=== PATIENT | female | born 1990 | race Caucasian/White ===

== ENCOUNTER 2021-02-10 19:24 | Inpatient (IN) | payer BC ==
[2021-02-10] MEDS ORDERED: Sodium Chloride 0.9% 20 ML SDV IV PRN (19:30)
[2021-02-10] MEDS ORDERED: Tranexamic Acid 1,000 MG in Sodium Chloride 0.9% 100 ML IV PRN (19:30)
[2021-02-10] MEDS ORDERED: Lidocaine 1% 50 ML MDV INJECT PRN (19:30)
[2021-02-10] MEDS ORDERED: Oxytocin/0.9 % Sodium Chloride 30 UNIT/500 ML BAG IV SCH ×2 (19:30)
[2021-02-10] MEDS ORDERED: Sodium Chloride 0.9% 2.5 ML Syringe FLUSH PRN (19:30)
[2021-02-10] MEDS ORDERED: Nalbuphine 10 MG/1 ML Vial IVPUSH PRN (19:30)
[2021-02-10] MEDS ORDERED: Sodium Chloride 0.9% 10 ML Syringe FLUSH PRN (19:30)
[2021-02-10] MEDS ORDERED: Butorphanol 1 MG/ML SDV IVPUSH PRN (19:30)
[2021-02-10] MEDS ORDERED: Ondansetron 4 MG/2 ML SDV IVPUSH PRN (19:30)
[2021-02-10] MEDS ORDERED: Carboprost Tromethamine 250 MCG/1 ML Amp IM PRN (19:30)
[2021-02-10] MEDS ORDERED: Terbutaline 1 MG/ML SDV SUBCUT PRN (19:30)
[2021-02-10] MEDS ORDERED: Water For Irrigation,Sterile 1,000 ML Container IRR PRN (19:30)
[2021-02-10] MEDS ORDERED: Methylergonovine 0.2 MG/1 ML Amp IM PRN (19:30)
[2021-02-10] MEDS ORDERED: Misoprostol 200 MCG Tab PO PRN (19:30)
[2021-02-10] MEDS ORDERED: Insulin Regular in 0.9 % NACL 100 ML IV SCH (19:40)
[2021-02-10] MEDS ORDERED: Misoprostol 25 MCG (1/4 of 100 MCG) Tab VAG PRN (20:30)
[2021-02-10] MEDS: Lactated Ringers 1,000 ML IV SCH (20:51)
[2021-02-11] MEDS: Misoprostol 25 MCG (1/4 of 100 MCG) Tab VAG PRN ×4 (00:42→12:58)
[2021-02-11] MEDS: Lactated Ringers 1,000 ML IV SCH ×3 (09:10→19:06)
[2021-02-11] MEDS ORDERED: Acetaminophen 500 MG Tab PO ONE (11:35)
--- NOTE | 2021-02-11 11:59 | PCM.PREANE ---
Preanesthetic Assessment - Procedure Proposed Procedure: Labor Epidural, Spinal, GETA - Anesthesia/Transfusion/Family Hx Anesthesia History: Prior Anesthesia Reaction (Emergency Delirium) Other Type of Anesthesia Reaction Comment: panic attack coming out of anesthesia Family History of Anesthesia Reaction: Yes (Father: Awareness) Transfusion History: No Prior Transfusion(s) - Review of Systems General: No Symptoms Pulmonary: Other (Athma with minmal inhailer use) Cardiovascular: No Symptoms Gastrointestinal: No Symptoms, Other (GERD. Gestational DM) Neurological: No Symptoms Other: Reports: None (81mg ASA stopped 02/06/21) - Physical Assessment NPO Status Date: 02/11/21 NPO Status Time: 12:00 Height: 1.65 m Weight: 117.934 kg ASA Class: 2 Mental Status: Alert & Oriented x3 Airway Class: Mallampati = 2 Thyro-Mental Finger Breadths: 3 Mouth Opening Finger Breadths: 3 ROM/Head Extension: Full Lungs: Clear to Auscultation, Normal Respiratory Effort Cardiovascular: Regular Rate, Regular Rhythm - Lab Values: Laboratory Last Values WBC 12.81 K/uL (4.0-11.0) H 02/10/21 20:10 RBC 4.05 M/uL (4.30-5.90) L 02/10/21 20:10 Hgb 10.5 g/dL (12.0-16.0) L 02/10/21 20:10 Hct 32.4 % (36.0-46.0) L 02/10/21 20:10 MCV 80.0 fL (80.0-98.0) 02/10/21 20:10 MCH 25.9 pg (27.0-32.0) L 02/10/21 20:10 MCHC 32.4 g/dL (31.0-37.0) 02/10/21 20:10 RDW Std Deviation 43.8 fl (28.0-62.0) 02/10/21 20:10 RDW Coeff of Gaviota 15 % (11.0-15.0) 02/10/21 20:10 Plt Count 216 K/uL (150-400) 02/10/21 20:10 MPV 11.20 fL (7.40-12.00) 02/10/21 20:10 Nucleated RBC % 0.0 /100WBC 02/10/21 20:10 Nucleated RBCs # 0 K/uL 02/10/21 20:10 POC Glucose 93 mg/dL (70-99) 02/11/21 10:57 Blood Type AB NEGATIVE 02/10/21 20:10 Antibody Screen NEGATIVE 02/10/21 20:10 - Allergies Allergies/Adverse Reactions: Allergies Allergy/AdvReac Type Severity Reaction Status Date / Time No Known Allergies Allergy Verified 02/10/21 20:30 - Blood Blood Available: Yes Product(s) Available: PRBC (Type and Screen) - Anesthesia Plan Pre-Op Medication Ordered: None - Acknowledgements Anesthesia Type Planned: General Anesthesia, Spinal, Epidural Pt an Appropriate Candidate for the Planned Anesthesia: Yes Alternatives and Risks of Anesthesia Discussed w Pt/Guardian: Yes Pt/Guardian Understands and Agrees with Anesthesia Plan: Yes PreAnesthesia Questionnaire HEENT History: Reports: Impaired Vision, Other (See Below) Other HEENT History: 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 sees skin care therapist biweekly for back and neck pain Neurological History: Reports: Concussion, Headaches, Chronic, Migraines, Other (See Below) Other Neuro History: most recent was in winter of 2016. Migraines during this Psychiatric History: Reports: Anxiety, Depression, Panic Attack Endocrine/Metabolic History: Reports: Diabetes, Gestational, Obesity/BMI 30+ Hematologic History: Reports: Other (See Below) Other Hematologic History: Vitamin D deficient - Infectious Disease History Infectious Disease History: Reports: Chicken Pox, Mononucleosis - Past Surgical History HEENT Surgical History: Reports: Adenoidectomy, Tonsillectomy, Other (See Below) Other HEENT Surgeries/Procedures: Wisedom teeth removed in 2008. Cardiovascular Surgical History: Reports: None Respiratory Surgical History: Reports: None GI Surgical History: Reports: None Endocrine Surgical History: Reports: None Neurological Surgical History: Reports: None Musculoskeletal Surgical History: Reports: None Dermatological Surgical History: Reports: None - SUBSTANCE USE Tobacco Use Status *Q: Former Tobacco User Tobacco Use Within Last Twelve Months: Smokeless Tobacco Second Hand Smoke Exposure: No Recreational Drug Use History: No - CURRENT (IN HOUSE) MEDS Current Meds: Current Medications Butorphanol Tartrate (Butorphanol 1 Mg/Ml Sdv) 1 mg IVPUSH Q1H PRN PRN Reason: Pain (severe 7-10) Carboprost Tromethamine (Carboprost Tromethamine 250 Mcg/1 Ml Amp) 250 mcg IM ASDIRECTED PRN PRN Reason: Post Hemorrhage Oxytocin/Sodium Chloride (Oxytocin 30 Unit In Ns 0.9% 500 Ml Premix) 30 unit in 500 mls @ 2 mls/hr IV TITRATE TAYLOR; Protocol Lactated Ringer's (Ringers, Lactated) 1,000 mls @ 150 mls/hr IV ASDIRECTED TAYLOR Last Admin: 02/11/21 09:10 Dose: 150 mls/hr Documented by: Oxytocin/Sodium Chloride (Oxytocin 30 Unit In Ns 0.9% 500 Ml Premix) 30 unit in 500 mls @ 500 mls/hr IV TITRATE TAYLOR Tranexamic Acid 1,000 mg/ (Sodium Chloride) 110 mls @ 660 mls/hr IV ONETIME PRN PRN Reason: Bleeding Dextrose/Lactated Ringer's (Dextrose 5%-Lactated Ringers) 1,000 mls @ 100 mls/hr IV ASDIRECTED TAYLOR Insulin Regular in 0.9 % NACL (Myxredlin In Ns 100 Unit/100 Ml) 100 mls @ 0.5 mls/hr IV TITRATE TAYLOR; Protocol Lidocaine HCl (Lidocaine 1% 50 Ml Mdv) 50 ml INJECT ONETIME PRN PRN Reason: Laceration repair Methylergonovine Maleate (Methylergonovine 0.2 Mg/1 Ml Amp) 0.2 mg IM ASDIRECTED PRN PRN Reason: Post Hemorrhage Misoprostol (Misoprostol 25 Mcg (1/4 Of 100 Mcg) Tab) 25 mcg VAG ONETIME PRN PRN Reason: Cervical Ripening Last Admin: 02/10/21 20:42 Dose: 25 mcg Documented by: Misoprostol (Misoprostol 25 Mcg (1/4 Of 100 Mcg) Tab) 25 mcg VAG Q4H PRN PRN Reason: Cervical Ripening Last Admin: 02/11/21 09:11 Dose: 25 mcg Documented by: Misoprostol (Misoprostol 200 Mcg Tab) 200 mcg PO ONETIME PRN PRN Reason: Post Hemorrhage Nalbuphine HCl (Nalbuphine 10 Mg/1 Ml Vial) 10 mg IVPUSH Q1H PRN PRN Reason: Pain (severe 7-10) Ondansetron HCl (Ondansetron 4 Mg/2 Ml Sdv) 4 mg IVPUSH Q6H PRN PRN Reason: Nausea/Vomiting Sodium Chloride (Sodium Chloride 0.9% 10 Ml Syringe) 10 ml FLUSH ASDIRECTED PRN PRN Reason: Keep Vein Open Sodium Chloride (Sodium Chloride 0.9% 2.5 Ml Syringe) 2.5 ml FLUSH ASDIRECTED PRN PRN Reason: Keep Vein Open Sodium Chloride (Sodium Chloride 0.9% 20 Ml Sdv) 10 ml IV ASDIRECTED PRN PRN Reason: IV Use Sterile Water (Water For Irrigation,Sterile 1,000 Ml Container) 1,000 ml IRR ASDIRECTED PRN PRN Reason: delivery Terbutaline Sulfate (Terbutaline 1 Mg/Ml Sdv) 0.25 mg SUBCUT ASDIRECTED PRN PRN Reason: Tacysystole Discontinued Medications Acetaminophen (Acetaminophen 500 Mg Tab) 1,000 mg PO ONETIME ONE Stop: 02/11/21 11:36 Last Admin: 02/11/21 11:46 Dose: 1,000 mg Documented by:
[2021-02-11] MEDS: Dextrose 5%-Lactated Ringers 1,000 ML IV SCH (17:10)
[2021-02-11] MEDS ORDERED: Ropivacaine HCl/PF 200 ML ONE (19:34)
[2021-02-11] MEDS ORDERED: ePHEDrine 50 MG/ML SDV IVPUSH PRN (19:58)
[2021-02-11] MEDS ORDERED: Ropivacaine/PF 400 MG/200 ML PCA EPIDUR SCH (20:00)
--- NOTE | 2021-02-11 20:03 | PCM.POSTAN ---
POST ANESTHESIA ASSESSMENT - MENTAL STATUS Mental Status: Alert, Oriented - RESPIRATORY Respiratory Status: Respiratory Rate WNL, Airway Patent, O2 Saturation Stable - CARDIOVASCULAR CV Status: Pulse Rate WNL, Blood Pressure Stable - GASTROINTESTINAL GI Status: No Symptoms - POST OP HYDRATION Hydration Status: Adequate & Stable
--- NOTE | 2021-02-11 20:03 | PCM.SN.2 ---
- Pre-Procedure Checklist Attending Provider Aware: Yes Chart Reviewed: Yes Consent Signed: Yes Labs Reviewed: Yes VS/FHR Reviewed: Yes Patient Identification Confirmation Method: Reports: Chart Visual, Verbal Patient Pt an Appropriate Candidate for the Planned Anesthesia: Yes Alternatives and Risks of Anesthesia Discussed w Pt/Guardian: Yes - Procedure Procedure Start Date: 02/11/21 Procedure Start Time: 19:[address]: Reports: Blood Pressure, Heart Rate, SPO2 Functional IV: Yes Bolus Infused (fluid type and amount): 700 ML LR Bolus infused at time of start. Safety Measures: Reports: Patient Identified, Procedure Verified, Site Verified, Procedure Time Out Patient Position: Reports: Sitting Prep: Reports: Betadine x3 Local Anesthetic: Reports: Intradermal Wheal w Lidocaine 1% (3 ml) Regional Placement Level: Reports: L3-4 Needle: Reports: 17 g Touhy Approach: Reports: Midline Technique: Reports: TITA Glass Syringe TITA Needle Depth (cm): 7 cm Parasthesia: Reports: None Fluid Obtained: Reports: None Catheter Depth at Skin (cm): 17 cm Test Dose Time: 19:30 Test Dose Medication: Reports: Lidocaine 1.5% w Epinephrine 1:200,000 Test Dose Response: Reports: Negative Loading Dose Time: 19:38 (6 ML) Loading Dose Medication: Ropivicaine 0.2% Loading Dose Patient Position: Supine Continuous Infusion Start Time: 19:40 Continuous Infusion Medication: Ropivicaine 0.2% Continuous Infusion Rate: 16 ml / hr Continuous Infusion PCS Bolus Option: 6 Continuous Infusion Lockout Dose (cc/hr): 15 ( Min Lockout ) Patient Position Post Placement: Reports: Supline/DAMIEN Post-procedure Pain Level: 3 Level Achieved: T4 VS and FHR Monitored in Unit Post Placement: Yes Procedure End Date: 02/11/21 Procedure End Time: 20:20 Procedure Comment: Sterile technique used throughout.
[2021-02-12] MEDS: Lactated Ringers 1,000 ML IV SCH (02:42)
[2021-02-12] MEDS: Dextrose 5%-Lactated Ringers 1,000 ML IV SCH (03:10)
[2021-02-12] MEDS ORDERED: Ropivacaine HCl/PF 200 ML ONE (05:43)
[2021-02-12] MEDS ORDERED: Ropivacaine 0.2% PF 2 MG/ML 20 ML SDV ONE (06:53)
[2021-02-12] MEDS ORDERED: fentaNYL 100 MCG/2 ML SDV ONE ×2 (06:54→09:10)
[2021-02-12] MEDS ORDERED: ePHEDrine 50 MG/ML SDV ONE (08:14)
[2021-02-12] MEDS ORDERED: Oxytocin 10 Units/1 ML SDV ONE ×2 (08:14→08:37)
[2021-02-12] MEDS ORDERED: Glycopyrrolate 0.2 MG/ML SDV ONE (08:14)
[2021-02-12] MEDS ORDERED: ceFAZolin 1 GM Vial ONE (08:30)
[2021-02-12] MEDS ORDERED: Water For Injection, Sterile 20 ML ONE (08:30)
[2021-02-12] MEDS ORDERED: Morphine PF 10 MG/10 ML SDV ONE (08:37)
[2021-02-12] MEDS ORDERED: Acetaminophen/oxyCODONE 325-5 MG Tab PO PRN (09:01)
[2021-02-12] MEDS ORDERED: Bisacodyl 10 MG Supp RECTAL PRN (09:01)
[2021-02-12] MEDS ORDERED: Misoprostol 200 MCG Tab RECTAL PRN (09:01)
[2021-02-12] MEDS ORDERED: Tranexamic Acid 1,000 MG in Sodium Chloride 0.9% 100 ML IV PRN (09:01)
[2021-02-12] MEDS ORDERED: Simethicone 80 MG Tab.Chew PO PRN (09:01)
[2021-02-12] MEDS ORDERED: Methylergonovine 0.2 MG/1 ML Amp IM PRN (09:01)
[2021-02-12] MEDS ORDERED: Oxytocin 10 Units/1 ML SDV IM PRN (09:01)
[2021-02-12] MEDS ORDERED: Ondansetron 4 MG/2 ML SDV IVPUSH PRN (09:01)
[2021-02-12] MEDS ORDERED: Lanolin 100% Cream 7 GM Tube TOP PRN (09:01)
[2021-02-12] MEDS ORDERED: Oxytocin/Lactated Ringers 30 UNIT/500 ML BAG IV SCH (09:15)
[2021-02-12] MEDS ORDERED: Lactated Ringers 1,000 ML IV SCH (09:15)
--- NOTE | 2021-02-12 09:23 | PCM.POSTAN ---
POST ANESTHESIA ASSESSMENT - MENTAL STATUS Mental Status: Alert (Post Assessment.), Oriented - RESPIRATORY Respiratory Status: Respiratory Rate WNL, Airway Patent, O2 Saturation Stable - CARDIOVASCULAR CV Status: Pulse Rate WNL, Blood Pressure Stable - GASTROINTESTINAL GI Status: No Symptoms - POST OP HYDRATION Hydration Status: Adequate & Stable
--- NOTE | 2021-02-12 09:24 | PCM48HPAN ---
Post Anesthesia Note - EVALUATION WITHIN 48HRS OF ANESTHETIC Vital Signs in Normal Range: Yes Patient Participated in Evaluation: Yes Respiratory Function Stable: Yes Airway Patent: Yes Cardiovascular Function Stable: Yes Hydration Status Stable: Yes Pain Control Satisfactory: Yes Nausea and Vomiting Control Satisfactory: Yes Mental Status Recovered: Yes - COMMENTS/OBSERVATIONS Free Text/Narrative:: Epidural catheter removed in OR with tip intact.
[2021-02-12] MEDS: Ketorolac 30 MG/ML SDV IVPUSH SCH ×3 (10:50→22:19)
[2021-02-12] MEDS: diphenhydrAMINE 50 MG/ML SDV IVPUSH PRN ×2 (12:28→20:21)
[2021-02-12] MEDS ORDERED: Famotidine 20 MG/2 ML SDV IVPUSH ONE (14:08)
[2021-02-12] MEDS: Docusate Sodium 100 MG Cap PO SCH (22:18)
--- NOTE | 2021-02-12 23:27 | OR ---
SURGEON: Darnell Perez MD DATE OF PROCEDURE: 02/10/2021 INDICATION FOR PROCEDURE: This is a 30-year-old G2, P 0-0-1-0 at 39 weeks and 6 days, admitted for induction of labor for GDMA2. The patient's was complicated by history of polycystic ovarian syndrome and morbid obesity. She had elevated glucose tolerance test with a diagnosis of gestational diabetes, which was well controlled with long-acting insulin. The patient had serial growth ultrasounds, and the estimated weight was 4200 g. She is GBS negative. The patient's cervix was initially closed. She received 4 doses of Cytotec without significant cervical change. A Cook balloon was placed for mechanical dilation, and Pitocin was started. After the Cook balloon was placed for about 10 hours, the balloon was expelled and she progressed to 6, 90, and 0 station. She also had spontaneous rupture of membranes with clear fluid. She began to have stronger contractions and received an epidural. The heart rate was category I. In the next 3 hours, she progressed to fully dilated and +2 station. The patient then began pushing with contractions. However, she pushed for 3 hours and did not make descent past +3 station. Exam noted the head to be occiput posterior position. The patient was also getting exhausted from pushing. We discussed the risks and benefits of vacuum- assisted vaginal delivery versus primary due to arrest of descent, the patient desired vacuum-assisted vaginal delivery. PREOPERATIVE DIAGNOSES: 1. Whitlock intrauterine at 39 weeks and 6 days. 2. Insulin-controlled gestational diabetes. 3. Second-stage arrest. 4. Occiput posterior presentation. POSTOPERATIVE DIAGNOSES: 1. Whitlock intrauterine at 39 weeks and 6 days. 2. Insulin-controlled gestational diabetes. 3. Second-stage arrest. 4. Occiput posterior presentation. PROCEDURE PERFORMED: 1. Unsuccessful vacuum extraction. 2. Primary low-transverse section. CARGO SERVICE AGENT: Shala Sarabia MD ANESTHESIOLOGIST: Dr. Cisco Winn and Cj Corona CRNA. ANESTHESIA: Epidural. FINDINGS: Viable female . scores of 8 and 10, weight of 3690 g. The head was in the occiput posterior presentation. ESTIMATED BLOOD LOSS: 600 mL. URINE OUTPUT: 60 mL. IV FLUIDS: 1100 mL. DESCRIPTION OF THE PROCEDURE: The risks and benefits of the vacuum-assisted delivery was discussed with the patient, including maternal lacerations and hematoma; and retinal hemorrhage, cephalhematoma, and subdural or subgaleal hematoma were discussed with the patient. She was agreeable to proceed. The patient's bladder was emptied with a straight catheter. She was placed in dorsal lithotomy position. The head was found to be occiput posterior position. A Kiwi vacuum was applied over the flexion point and suction increased to the appropriate level. With the next contraction, I advised the patient to push. The vacuum was applied for 3 contractions with two pop offs, and there was minimal descent. Discussed with the patient and that she had made minimal descent and her chances of delivering vaginally is low considering the position and size. I advised her to proceed with primary low-transverse section. We discussed the risks of including bleeding; infection; DVTs; injury to surrounding organs including bladder, bowel, and ureter. The patient was agreeable. Consent was signed and questions answered. Anesthesia, OR, and pediatric teams were informed and available. The patient was brought to the operating room. She received 3 g Ancef IV and SCDs. Epidural anesthesia was already in place and topped off by Anesthesia team. A Lazar catheter was placed. The abdomen was prepped with chlorhexidine in a sterile fashion, and the vagina prepped with Betadine. The patient was draped and then tested for analgesia. The epidural was adequate. The Pfannenstiel incision was made with a scalpel and dissected down to the fascia. Multiple sites of bleeding were noted and cauterized. The fascia was cleared of subcutaneous tissue. The fascia was incised in the midline and extended laterally with curved Roberson scissors. Sweetie clamps were placed on the superior fascial edge. The rectus muscles were by blunt dissection and using Roberson scissors. The same process was repeated for the inferior fascial edge. The peritoneum was identified, and the rectus muscles were in the midline bluntly. The Binu-O retractor was placed in the peritoneal cavity. The bladder was noted to be very edematous. The bladder flap was made by gently dissecting the vesicouterine peritoneum with Metzenbaum scissors, and bladder pushed below the lower uterus segment. The uterus was incised using a scalpel and entered and extended bluntly. Clear amniotic fluid was noted. The infant's head was brought to the hysterotomy atraumatically by elevating the head up from the pelvis. The shoulder and body were then delivered with fundal pressure. The umbilical cord was clamped and cut after about 60 seconds and no longer pulsating. The baby was pink, crying immediately, and moving all extremities. The baby was handed over to the nursery staff. The cord gases were obtained. The placenta was delivered with gentle traction on the umbilical cord. The uterine cavity was cleaned with a sponge. The Allis clamps were used to grasp the angles and lower edges of the incision. The uterine incision was closed in 2 layers, the first layer with running locking suture using 0 Monocryl, and the second layer with 0 Vicryl in a vertical imbricated fashion. The incision was examined, and there were a few areas near the bladder flap that were bleeding slightly. [id number] sutures were placed for hemostasis. The bladder was carefully examined and there was no signs of injury. The paracolic gutters were cleaned of any clots. The incision was irrigated. Hemostasis was confirmed. The peritoneum was grasped by Adilene clamps and closed with 2-0 Vicryl in a running fashion. The rectus muscle was reapproximated in the midline with a mattress stitch using 2-0 Vicryl. The fascia was closed using two 0 Vicryl sutures in a running fashion. The subcutaneous tissue was irrigated and bleeding areas cauterized. The subcutaneous layer was brought together with 2-0 plain suture in a running fashion. The skin was closed in a subcuticular fashion using 3-0 Monocryl on a Ben needle. A JUAN dressing was placed over the incision. The patient tolerated the procedure well and was transferred to the recovery room in stable condition. PANCHO ORELLANA /[id number] TING
[2021-02-13] MEDS: Ketorolac 30 MG/ML SDV IVPUSH SCH ×2 (05:38→11:35)
--- NOTE | 2021-02-13 08:01 | PCM.PNPP ---
- General Info Date of Service: 02/13/21 Subjective Update: Patient slept overnight. Tinajero has been removed, has not attempted to void yet. Minimal bleeding. Pain well controlled while sleeping. Functional Status: Reports: Pain Controlled, Tolerating Diet - Review of Systems General: Reports: No Symptoms HEENT: Reports: No Symptoms Pulmonary: Reports: No Symptoms Cardiovascular: Reports: No Symptoms Gastrointestinal: Reports: No Symptoms Genitourinary: Reports: No Symptoms Musculoskeletal: Reports: No Symptoms Skin: Reports: No Symptoms Neurological: Reports: No Symptoms Psychiatric: Reports: No Symptoms - Patient Data Vital Signs - Most Recent: Last Vital Signs Temp 36.8 C 02/12/21 16:30 Pulse 82 02/12/21 16:30 Resp 18 02/12/21 16:30 BP 122/67 02/12/21 16:30 Pulse Ox 99 02/12/21 16:30 Weight - Most Recent: 117.934 kg I&O - Last 24 Hours: Intake & Output 02/12/21 02/13/21 02/13/21 22:59 06:59 14:59 Output Total 750 Balance -750 Lab Results - Last 24 Hours: Laboratory Results - last 24 hr 02/12/21 02/12/21 02/13/21 Range/Units 08:09 08:09 05:35 Hgb 7.7 L (12.0-16.0) g/dL Hct 24.7 L (36.0-46.0) % Cord ABG pH QNS Cord ABG Base Excess QNS Cord VBG pH 7.396 (7.25-7.45) Cord VBG Base Excess -6 (-10--2) POC Glucose (70-99) mg/dL Rhogam Indicated NO, MOM+BABY RH NEG 02/13/21 Range/Units 05:53 Hgb (12.0-16.0) g/dL Hct (36.0-46.0) % Cord ABG pH Cord ABG Base Excess Cord VBG pH (7.25-7.45) Cord VBG Base Excess (-10--2) POC Glucose 76 (70-99) mg/dL Rhogam Indicated Med Orders - Current: Current Medications Bisacodyl (Bisacodyl 10 Mg Supp) 10 mg RECTAL ONETIME PRN PRN Reason: Constipation Butorphanol Tartrate (Butorphanol 1 Mg/Ml Sdv) 1 mg IVPUSH Q1H PRN PRN Reason: Pain (severe 7-10) Last Admin: 02/11/21 14:08 Dose: 1 mg Documented by: Carboprost Tromethamine (Carboprost Tromethamine 250 Mcg/1 Ml Amp) 250 mcg IM ASDIRECTED PRN PRN Reason: Post Hemorrhage Diphenhydramine HCl (Diphenhydramine 50 Mg/Ml Sdv) 25 mg IVPUSH Q6H PRN PRN Reason: Itching or Nausea Last Admin: 02/12/21 20:21 Dose: 25 mg Documented by: Docusate Sodium (Docusate Sodium 100 Mg Cap) 100 mg PO BID TAYLOR Last Admin: 02/12/21 22:18 Dose: 100 mg Documented by: Emollient Ointment (Lanolin 100% Cream 7 Gm Tube) 0 gm TOP ASDIRECTED PRN PRN Reason: Sore Nipples Last Admin: 02/12/21 12:35 Dose: 1 tube Documented by: Ephedrine Sulfate (Ephedrine 50 Mg/Ml Sdv) 10 mg IVPUSH Q1M PRN PRN Reason: Hypotension Oxytocin/Sodium Chloride (Oxytocin 30 Unit In Ns 0.9% 500 Ml Premix) 30 unit in 500 mls @ 2 mls/hr IV TITRATE TAYLOR; Protocol Last Titration: 02/12/21 03:26 Dose: 12 munits/min, 12 mls/hr Documented by: Lactated Ringer's (Ringers, Lactated) 1,000 mls @ 150 mls/hr IV ASDIRECTED [facility] Last Admin: 02/12/21 02:42 Dose: 150 mls/hr Documented by: Oxytocin/Sodium Chloride (Oxytocin 30 Unit In Ns 0.9% 500 Ml Premix) 30 unit in 500 mls @ 500 mls/hr IV TITRATE TAYLOR Tranexamic Acid 1,000 mg/ (Sodium Chloride) 110 mls @ 660 mls/hr IV ONETIME PRN PRN Reason: Bleeding Dextrose/Lactated Ringer's (Dextrose 5%-Lactated Ringers) 1,000 mls @ 100 mls/hr IV ASDIRECTED TAYLOR Last Admin: 02/12/21 03:10 Dose: 100 mls/hr Documented by: Insulin Regular in 0.9 % NACL (Myxredlin In Ns 100 Unit/100 Ml) 100 mls @ 0.5 mls/hr IV TITRATE TAYLOR; Protocol Lactated Ringer's (Ringers, Lactated) 1,000 mls @ 125 mls/hr IV ASDIRECTED TAYLOR Oxytocin/Lactated Ringer's (Pitocin In Lr 30 Units/500 Ml) 30 unit in 500 mls @ 999 mls/hr IV TITRATE TAYLOR Tranexamic Acid 1,000 mg/ (Sodium Chloride) 110 mls @ 660 mls/hr IV ONETIME PRN PRN Reason: Bleeding Ibuprofen (Ibuprofen 800 Mg Tab) 800 mg PO Q8H PRN PRN Reason: Cramping Ketorolac Tromethamine (Ketorolac 30 Mg/Ml Sdv) 30 mg IVPUSH Q6H TAYLOR Stop: 02/13/21 09:16 Last Admin: 02/13/21 05:38 Dose: 30 mg Documented by: Lidocaine HCl (Lidocaine 1% 50 Ml Mdv) 50 ml INJECT ONETIME PRN PRN Reason: Laceration repair Methylergonovine Maleate (Methylergonovine 0.2 Mg/1 Ml Amp) 0.2 mg IM ASDIRECTED PRN PRN Reason: Post Hemorrhage Methylergonovine Maleate (Methylergonovine 0.2 Mg/1 Ml Amp) 0.2 mg IM ONETIME PRN PRN Reason: Excessive Vaginal Bleeding Miscellaneous Medication (Phenylephrine Hcl In 0.9% Nacl 1 Mg/10 Ml Syringe) 0.1 mg IVPUSH Q1M PRN PRN Reason: Hypotension Misoprostol (Misoprostol 25 Mcg (1/4 Of 100 Mcg) Tab) 25 mcg VAG ONETIME PRN PRN Reason: Cervical Ripening Last Admin: 02/10/21 20:42 Dose: 25 mcg Documented by: Misoprostol (Misoprostol 25 Mcg (1/4 Of 100 Mcg) Tab) 25 mcg VAG Q4H PRN PRN Reason: Cervical Ripening Last Admin: 02/11/21 12:58 Dose: 25 mcg Documented by: Misoprostol (Misoprostol 200 Mcg Tab) 200 mcg PO ONETIME PRN PRN Reason: Post Hemorrhage Misoprostol (Misoprostol 200 Mcg Tab) 1,000 mcg RECTAL ONETIME PRN PRN Reason: excessive bleeding Nalbuphine HCl (Nalbuphine 10 Mg/1 Ml Vial) 10 mg IVPUSH Q1H PRN PRN Reason: Pain (severe 7-10) Last Admin: 02/11/21 12:57 Dose: 10 mg Documented by: Ondansetron HCl (Ondansetron 4 Mg/2 Ml Sdv) 4 mg IVPUSH Q6H PRN PRN Reason: Nausea/Vomiting Ondansetron HCl (Ondansetron 4 Mg/2 Ml Sdv) 4 mg IVPUSH Q4H PRN PRN Reason: Nausea/Vomiting Oxycodone/Acetaminophen (Acetaminophen/Oxycodone 325-5 Mg Tab) 1 tab PO Q4H PRN PRN Reason: Pain (severe 7-10) Oxycodone/Acetaminophen (Acetaminophen/Oxycodone 325-5 Mg Tab) 2 tab PO Q4H PRN PRN Reason: Pain (severe 7-10) Oxytocin (Oxytocin 10 Units/1 Ml Sdv) 10 unit IM ASDIRECTED PRN PRN Reason: Excessive Vaginal Bleeding Ropivacaine (Ropivacaine/Pf 400 Mg/200 Ml Sewer And Inspector) 400 mg EPIDUR ASDIRECTED TAYLOR Simethicone (Simethicone 80 Mg Tab.Chew) 80 mg PO Q4H PRN PRN Reason: Gas Sodium Chloride (Sodium Chloride 0.9% 10 Ml Syringe) 10 ml FLUSH ASDIRECTED PRN PRN Reason: Keep Vein Open Sodium Chloride (Sodium Chloride 0.9% 2.5 Ml Syringe) 2.5 ml FLUSH ASDIRECTED PRN PRN Reason: Keep Vein Open Sodium Chloride (Sodium Chloride 0.9% 20 Ml Sdv) 10 ml IV ASDIRECTED PRN PRN Reason: IV Use Sterile Water (Water For Irrigation,Sterile 1,000 Ml Container) 1,000 ml IRR ASDIRECTED PRN PRN Reason: delivery Terbutaline Sulfate (Terbutaline 1 Mg/Ml Sdv) 0.25 mg SUBCUT ASDIRECTED PRN PRN Reason: Tacysystole Discontinued Medications Acetaminophen (Acetaminophen 500 Mg Tab) 1,000 mg PO ONETIME ONE Stop: 02/11/21 11:36 Last Admin: 02/11/21 11:46 Dose: 1,000 mg Documented by: Cefazolin Sodium (Cefazolin 1 Gm Vial) Confirm Administered Dose 1 gm .ROUTE .STK-MED ONE Stop: 02/12/21 08:31 Ephedrine Sulfate (Ephedrine 50 Mg/Ml Sdv) Confirm Administered Dose 50 mg .ROUTE .STK-MED ONE Stop: 02/12/21 08:15 Famotidine (Famotidine 20 Mg/2 Ml Sdv) 20 mg IVPUSH ONETIME ONE Stop: 02/12/21 14:09 Last Admin: 02/12/21 14:35 Dose: 20 mg Documented by: Fentanyl (Fentanyl 100 Mcg/2 Ml Sdv) Confirm Administered Dose 100 mcg .ROUTE .STK-MED ONE Stop: 02/12/21 06:55 Fentanyl (Fentanyl 100 Mcg/2 Ml Sdv) Confirm Administered Dose 100 mcg .ROUTE .STK-MED ONE Stop: 02/12/21 09:11 Glycopyrrolate (Glycopyrrolate 0.2 Mg/Ml Sdv) Confirm Administered Dose 0.4 mg .ROUTE .STK-MED ONE Stop: 02/12/21 08:15 Ropivacaine (Naropin 0.2%) Confirm Administered Dose 200 mls @ as directed .ROUT E .STK-MED ONE Stop: 02/11/21 19:35 Ropivacaine (Naropin 0.2%) Confirm Administered Dose 200 mls @ as directed .ROUTE .STK-MED ONE Stop: 02/12/21 05:44 Last Admin: 02/12/21 05:55 Dose: 16 mls/hr Documented by: Cefazolin Sodium/Dextrose (Ancef) Confirm Administered Dose 50 mls @ as directed .ROUTE .STK-MED ONE Stop: 02/12/21 08:15 Sterile Water (Sterile Water For Injection) Confirm Administered Dose 20 mls @ as directed .ROUTE .STK-MED ONE Stop: 02/12/21 08:31 Miscellaneous Medication (Phenylephrine Hcl In 0.9% Nacl 1 Mg/10 Ml Syringe) Confirm Administered Dose 1 mg .ROUTE .STK-MED ONE Stop: 02/12/21 08:15 Morphine Sulfate (Morphine Pf 10 Mg/10 Ml Sdv) Confirm Administered Dose 10 mg .ROUTE .STK-MED ONE Stop: 02/12/21 08:38 Oxytocin (Oxytocin 10 Units/1 Ml Sdv) Confirm Administered Dose 30 unit .ROUTE .STK-MED ONE Stop: 02/12/21 08:15 Oxytocin (Oxytocin 10 Units/1 Ml Sdv) Confirm Administered Dose 30 unit .ROUTE .STK-MED ONE Stop: 02/12/21 08:38 Ropivacaine (Ropivacaine 0.2% Pf 2 Mg/Ml 20 Ml Sdv) Confirm Administered Dose 20 ml .ROUTE .STK-MED ONE Stop: 02/12/21 06:54 - Infant Interaction Disposition, : [place] to Nursery Infant Interaction: Unable to Hold Infant at this Time Feeding: Attempted ; Nursed Fair/Poor, Bottle Fed Infant, Encouraged to Breastfeed (encouraged pumping and every 2 hours to help with milk supply) Support Person: - Recovery Exam Fundal Tone: Firm Fundal Level: 1 Fingerbreadths Below Umbilicus Fundal Placement: Midline Lochia Amount: Scant Lochia Color: Rubra/Red Perineum Description: Intact, Minimal Bruising/Swelling Episiotomy/Laceration: None Bladder Status: Nonpalpable - Exam General: Alert, Oriented Neck: Supple Cardiovascular: Regular Rhythm GI/Abdominal Exam: Soft, Non-Tender, No Distention Extremities: Non-Tender Skin: Warm, Dry, Intact Wound/Incisions: Dressing Dry and Intact Neurological: No New Focal Deficit Psy/Mental Status: Alert, Normal Affect, Normal Mood - Problem List & Annotations (1) S/P primary low transverse SNOMED Code(s): 173212132, 12836363, 058094276, 500412524, 839643021 Code(s): Z98.891 - HISTORY OF UTERINE SCAR FROM PREVIOUS SURGERY Status: Acute Current Visit: Yes (2) Gestational diabetes mellitus in , insulin controlled SNOMED Code(s): 15247008 Code(s): O24.414 - GESTATIONAL DIABETES IN , INSULIN CONTROLLED [facility]: Acute Current Visit: Yes - Problem List Review Problem List Initiated/Reviewed/Updated: Yes - My Orders Last 24 Hours: My Active Orders 02/12/21 09:01 Patient Status [ADT] Routine Ambulate [RC] PER UNIT ROUTINE Communication Order [RC] PER UNIT ROUTINE Communication Order [RC] PER UNIT ROUTINE Communication Order [RC] Per Unit Routine Intake and Output [RC] QSHIFT May Shower [RC] ASDIRECTED Notify Provider Intake and Out [RC] ASDIRECTED Notify Provider Vital Signs [RC] ASDIRECTED Oxygen Therapy [RC] ASDIRECTED RT Incentive Spirometry [RC] Q2HWA Urinary Catheter Removal [RC] PER UNIT ROUTINE Vital Signs [RC] PER UNIT ROUTINE Acetaminophen/oxyCODONE [Percocet 325-5 MG] 1 tab PO Q4H PRN Acetaminophen/oxyCODONE [Percocet 325-5 MG] 2 tab PO Q4H PRN Ibuprofen [Motrin] 800 mg PO Q8H PRN Lanolin [Lansinoh HPA] See Dose Instructions TOP ASDIRECTED PRN Methylergonovine [Methergine] 0.2 mg IM ONETIME PRN Ondansetron [Zofran] 4 mg IVPUSH Q4H PRN Oxytocin [Pitocin] 10 unit IM ASDIRECTED PRN Simethicone 80 mg PO Q4H PRN Tranexamic Acid [Cyklokapron] 1,000 mg Sodium Chloride 0.9% [Normal Saline] 100 ml IV ONETIME bisacodyL [Dulcolax] 10 mg RECTAL ONETIME PRN diphenhydrAMINE [Benadryl] 25 mg IVPUSH Q6H PRN miSOPROStoL [Cytotec] 1,000 mcg RECTAL ONETIME PRN Abdominal Binder [OM.PC] Routine Assess Lochia [WOMSER] Per Unit Routine Assess Uterine Involution [WOMSER] Per Unit Routine Breast Pump [WOMSER] Per Unit Routine Heat Therapy [OM.PC] Routine Ice Therapy [OM.PC] Routine Peripheral IV Discontinue [OM.PC] Routine Sequential Compression Device [OM.PC] Per Unit Routine 02/12/21 09:02 Antiembolic Devices [RC] PER UNIT ROUTINE 02/12/21 09:03 Cooling Warming Measures [RC] ASDIRECTED 02/12/21 09:15 Ketorolac [Toradol] 30 mg IVPUSH Q6H Lactated Ringers [Ringers, Lactated] 1,000 ml IV ASDIRECTED Oxytocin/Lactated Ringers [Pitocin in LR 30 Units/500 ML] 30 unit in 500 ml IV TITRATE 02/12/21 Lunch Regular Diet [DIET] 02/12/21 21:00 Docusate Sodium [Colace] 100 mg PO BID - Assessment Assessment:: 30yo s/p 1LTCS for arrest of descent, failed vacuum extraction, POD#1 - Plan Plan:: 1. Continue routine care. Encourage ambulation today. If not able to void by 6 hours after tinajero removal, will straight cath. 2. GDMA2 - 2-hour GTT . Do not need to check blood sugars . 3. Rh negative, baby also Rh negative - Rhogam not indicated. 4. GBS negative 5. Dispo - plan discharge home on POD#2-3.
[2021-02-13] MEDS ORDERED: Ketorolac 30 MG/ML SDV ONE (11:26)
[2021-02-13] MEDS: Docusate Sodium 100 MG Cap PO SCH ×2 (11:35→20:33)
[2021-02-13] MEDS: Acetaminophen/oxyCODONE 325-5 MG Tab PO PRN ×2 (18:28→23:10)
[2021-02-13] MEDS: Ibuprofen 800 MG Tab PO PRN (20:33)
--- NOTE | 2021-02-14 08:47 | PCM.PNPP ---
- General Info Date of Service: 02/14/21 Subjective Update: Patient doing well this morning. Pain controlled with oral pain medication. Ambulating without dizziness. Functional Status: Reports: Pain Controlled, Tolerating Diet, Ambulating, Urinating - Review of Systems General: Reports: No Symptoms HEENT: Reports: No Symptoms Pulmonary: Reports: No Symptoms Cardiovascular: Reports: No Symptoms Gastrointestinal: Reports: No Symptoms Genitourinary: Reports: No Symptoms Musculoskeletal: Reports: No Symptoms Skin: Reports: No Symptoms Neurological: Reports: No Symptoms Psychiatric: Reports: No Symptoms - Patient Data Vital Signs - Most Recent: Last Vital Signs Temp 36.4 C 02/14/21 04:00 Pulse 78 02/14/21 04:00 Resp 16 02/14/21 04:00 BP 115/67 02/14/21 04:00 Pulse Ox 98 02/14/21 04:00 Weight - Most Recent: 117.934 kg Lab Results - Last 24 Hours: Laboratory Results - last 24 hr 02/10/21 Range/Units 20:10 RPR Non-Reac (Non-Reac) Med Orders - Current: Current Medications Bisacodyl (Bisacodyl 10 Mg Supp) 10 mg RECTAL ONETIME PRN PRN Reason: Constipation Butorphanol Tartrate (Butorphanol 1 Mg/Ml Sdv) 1 mg IVPUSH Q1H PRN PRN Reason: Pain (severe 7-10) Last Admin: 02/11/21 14:08 Dose: 1 mg Documented by: Carboprost Tromethamine (Carboprost Tromethamine 250 Mcg/1 Ml Amp) 250 mcg IM ASDIRECTED PRN PRN Reason: Post Hemorrhage Diphenhydramine HCl (Diphenhydramine 50 Mg/Ml Sdv) 25 mg IVPUSH Q6H PRN PRN Reason: Itching or Nausea Last Admin: 02/12/21 20:21 Dose: 25 mg Documented by: Docusate Sodium (Docusate Sodium 100 Mg Cap) 100 mg PO BID TAYLOR Last Admin: 02/13/21 20:33 Dose: 100 mg Documented by: Emollient Ointment (Lanolin 100% Cream 7 Gm Tube) 0 gm TOP ASDIRECTED PRN PRN Reason: Sore Nipples Last Admin: 02/12/21 12:35 Dose: 1 tube Documented by: Ephedrine Sulfate (Ephedrine 50 Mg/Ml Sdv) 10 mg IVPUSH Q1M PRN PRN Reason: Hypotension Oxytocin/Sodium Chloride (Oxytocin 30 Unit In Ns 0.9% 500 Ml Premix) 30 unit in 500 mls @ 2 mls/hr IV TITRATE TAYLOR; Protocol Last Titration: 02/12/21 03:26 Dose: 12 munits/min, 12 mls/hr Documented by: Lactated Ringer's (Ringers, Lactated) 1,000 mls @ 150 mls/hr IV ASDIRECTED TAYLOR Last Admin: 02/12/21 02:42 Dose: 150 mls/hr Documented by: Oxytocin/Sodium Chloride (Oxytocin 30 Unit In Ns 0.9% 500 Ml Premix) 30 unit in 500 mls @ 500 mls/hr IV TITRATE TAYLOR Tranexamic Acid 1,000 mg/ (Sodium Chloride) 110 mls @ 660 mls/hr IV ONETIME PRN PRN Reason: Bleeding Dextrose/Lactated Ringer's (Dextrose 5%-Lactated Ringers) 1,000 mls @ 100 mls/hr IV ASDIRECTED TAYLOR Last Admin: 02/12/21 03:10 Dose: 100 mls/hr Documented by: Insulin Regular in 0.9 % NACL (Myxredlin In Ns 100 Unit/100 Ml) 100 mls @ 0.5 mls/hr IV TITRATE [facility]; Protocol Lactated Ringer's (Ringers, Lactated) 1,000 mls @ 125 mls/hr IV ASDIRECTED TAYLOR Oxytocin/Lactated Ringer's (Pitocin In Lr 30 Units/500 Ml) 30 unit in 500 mls @ 999 mls/hr IV TITRATE TAYLOR Tranexamic Acid 1,000 mg/ (Sodium Chloride) 110 mls @ 660 mls/hr IV ONETIME PRN PRN Reason: Bleeding Ibuprofen (Ibuprofen 800 Mg Tab) 800 mg PO Q8H PRN PRN Reason: Cramping Last Admin: 02/13/21 20:33 Dose: 800 mg Documented by: Lidocaine HCl (Lidocaine 1% 50 Ml Mdv) 50 ml INJECT ONETIME PRN PRN Reason: Laceration repair Methylergonovine Maleate (Methylergonovine 0.2 Mg/1 Ml Amp) 0.2 mg IM ASDIRECTED PRN PRN Reason: Post Hemorrhage Methylergonovine Maleate (Methylergonovine 0.2 Mg/1 Ml Amp) 0.2 mg IM ONETIME PRN PRN Reason: Excessive Vaginal Bleeding Miscellaneous Medication (Phenylephrine Hcl In 0.9% Nacl 1 Mg/10 Ml Syringe) 0.1 mg IVPUSH Q1M PRN PRN Reason: Hypotension Misoprostol (Misoprostol 25 Mcg (1/4 Of 100 Mcg) Tab) 25 mcg VAG ONETIME PRN PRN Reason: Cervical Ripening Last Admin: 02/10/21 20:42 Dose: 25 mcg Documented by: Misoprostol (Misoprostol 25 Mcg (1/4 Of 100 Mcg) Tab) 25 mcg VAG Q4H PRN PRN Reason: Cervical Ripening Last Admin: 02/11/21 12:58 Dose: 25 mcg Documented by: Misoprostol (Misoprostol 200 Mcg Tab) 200 mcg PO ONETIME PRN PRN Reason: Post Hemorrhage Misoprostol (Misoprostol 200 Mcg Tab) 1,000 mcg RECTAL ONETIME PRN PRN Reason: excessive bleeding Nalbuphine HCl (Nalbuphine 10 Mg/1 Ml Vial) 10 mg IVPUSH Q1H PRN PRN Reason: Pain (severe 7-10) Last Admin: 02/11/21 12:57 Dose: 10 mg Documented by: Ondansetron HCl (Ondansetron 4 Mg/2 Ml Sdv) 4 mg IVPUSH Q6H PRN PRN Reason: Nausea/Vomiting Ondansetron HCl (Ondansetron 4 Mg/2 Ml Sdv) 4 mg IVPUSH Q4H PRN PRN Reason: Nausea/Vomiting Oxycodone/Acetaminophen (Acetaminophen/Oxycodone 325-5 Mg Tab) 1 tab PO Q4H PRN PRN Reason: Pain (severe 7-10) Last Admin: 02/13/21 23:10 Dose: 1 tab Documented by: Oxycodone/Acetaminophen (Acetaminophen/Oxycodone 325-5 Mg Tab) 2 tab PO Q4H PRN PRN Reason: Pain (severe 7-10) Oxytocin (Oxytocin 10 Units/1 Ml Sdv) 10 unit IM ASDIRECTED PRN PRN Reason: Excessive Vaginal Bleeding Ropivacaine (Ropivacaine/Pf 400 Mg/200 Ml Sliver Chopper) 400 mg EPIDUR ASDIRECTED TAYLOR Simethicone (Simethicone 80 Mg Tab.Chew) 80 mg PO Q4H PRN PRN Reason: Gas Sodium Chloride (Sodium Chloride 0.9% 10 Ml Syringe) 10 ml FLUSH ASDIRECTED PRN PRN Reason: Keep Vein Open Sodium Chloride (Sodium Chloride 0.9% 2.5 Ml Syringe) 2.5 ml FLUSH ASDIRECTED PRN PRN Reason: Keep Vein Open Sodium Chloride (Sodium Chloride 0.9% 20 Ml Sdv) 10 ml IV ASDIRECTED PRN PRN Reason: IV Use Sterile Water (Water For Irrigation,Sterile 1,000 Ml Container) 1,000 ml IRR ASDIRECTED PRN PRN Reason: delivery Terbutaline Sulfate (Terbutaline 1 Mg/Ml Sdv) 0.25 mg SUBCUT ASDIRECTED PRN PRN Reason: Tacysystole Discontinued Medications Acetaminophen (Acetaminophen 500 Mg Tab) 1,000 mg PO ONETIME ONE Stop: 02/11/21 11:36 Last Admin: 02/11/21 11:46 Dose: 1,000 mg Documented by: Cefazolin Sodium (Cefazolin 1 Gm Vial) Confirm Administered Dose 1 gm .ROUTE .STK-MED ONE Stop: 02/12/21 08:31 Ephedrine Sulfate (Ephedrine 50 Mg/Ml Sdv) Confirm Administered Dose 50 mg .ROUTE .STK-MED ONE Stop: 02/12/21 08:15 Famotidine (Famotidine 20 Mg/2 Ml Sdv) 20 mg IVPUSH ONETIME ONE Stop: 02/12/21 14:09 Last Admin: 02/12/21 14:35 Dose: 20 mg Documented by: Fentanyl (Fentanyl 100 Mcg/2 Ml Sdv) Confirm Administered Dose 100 mcg .ROUTE .STK-MED ONE Stop: 02/12/21 06:55 Fentanyl (Fentanyl 100 Mcg/2 Ml Sdv) Confirm Administered Dose 100 mcg .ROUTE .STK-MED ONE Stop: 02/12/21 09:11 Glycopyrrolate (Glycopyrrolate 0.2 Mg/Ml Sdv) Confirm Administered Dose 0.4 mg .ROUTE .STK-MED ONE Stop: 02/12/21 08:15 Ropivacaine (Naropin 0.2%) Confirm Administered Dose 200 mls @ as directed .ROUTE .STK-MED ONE Stop: 02/11/21 19:35 Ropivacaine (Naropin 0.2%) Confirm Administered Dose 200 mls @ as directed .ROUTE .STK-MED ONE Stop: 02/12/21 05:44 Last Admin: 02/12/21 05:55 Dose: 16 mls/hr Documented by: Cefazolin Sodium/Dextrose (Ancef) Confirm Administered Dose 50 mls @ as directed .ROUTE .STK-MED ONE Stop: 02/12/21 08:15 Sterile Water (Sterile Water For Injection) Confirm Administered Dose 20 mls @ as directed .ROUTE .STK-MED ONE Stop: 02/12/21 08:31 Ketorolac Tromethamine (Ketorolac 30 Mg/Ml Sdv) 30 mg IVPUSH Q6H TAYLOR Stop: 02/13/21 09:16 Last Admin: 02/13/21 11:35 Dose: 30 mg Documented by: Ketorolac Tromethamine (Ketorolac 30 Mg/Ml Sdv) Confirm Administered Dose 30 mg .ROUTE .STK-MED ONE Stop: 02/13/21 11:27 Miscellaneous Medication (Phenylephrine Hcl In 0.9% Nacl 1 Mg/10 Ml Syringe) Confirm Administered Dose 1 mg .ROUTE .STK-MED ONE Stop: 02/12/21 08:15 Morphine Sulfate (Morphine Pf 10 Mg/10 Ml Sdv) Confirm Administered Dose 10 mg .ROUTE .STK-MED ONE Stop: 02/12/21 08:38 Oxytocin (Oxytocin 10 Units/1 Ml Sdv) Confirm Administered Dose 30 unit .ROUTE .STK-MED ONE Stop: 02/12/21 08:15 Oxytocin (Oxytocin 10 Units/1 Ml Sdv) Confirm Administered Dose 30 unit .ROUTE .STK-MED ONE Stop: 02/12/21 08:38 Ropivacaine (Ropivacaine 0.2% Pf 2 Mg/Ml 20 Ml Sdv) Confirm Administered Dose 20 ml .ROUTE .STK-MED ONE Stop: 02/12/21 06:54 - Interaction Infant Disposition, : [place] to Nursery Infant Feeding: Bottle Fed , Encouraged to Breastfeed (encouraged pumping every 2 hours to help with milk supply) Support Person: - Recovery Exam Fundal Tone: Firm Fundal Level: 1 Fingerbreadths Below Umbilicus Fundal Placement: Midline Lochia Amount: Scant Lochia Color: Rubra/Red Bladder Status: Voiding Urinary Elimination: Voided Other Urinary Elimination, : Lazar removed ~0600 - no first void yet. - Exam General: Alert, Oriented Neck: Supple Lungs: Normal Respiratory Effort GI/Abdominal Exam: Soft, Non-Tender, No Distention Extremities: Non-Tender, No Pedal Edema Skin: Warm, Dry, Intact Wound/Incisions: Dressing Dry and Intact Neurological: No New Focal Deficit Psy/Mental Status: Alert, Normal Affect, Normal Mood - Problem List & Annotations (1) S/P primary low transverse SNOMED Code(s): 569510843, 76342359, 642335137, 590397846, 684880112 Code(s): Z98.891 - HISTORY OF UTERINE SCAR FROM PREVIOUS SURGERY Status: Acute Current Visit: Yes (2) Gestational diabetes mellitus in , insulin controlled SNOMED Code(s): 11509931 Code(s): O24.414 - GESTATIONAL DIABETES IN , INSULIN CONTROLLED Status: Acute Current Visit: Yes - Problem List Review Problem List Initiated/Reviewed/Updated: Yes - My Orders Last 24 Hours: My Active Orders 02/14/21 08:45 Ready for Discharge [RC] PER UNIT ROUTINE - Assessment Assessment:: 30yo s/p 1LTCS for arrest of descent, failed vacuum extraction, POD#2 - Plan Plan:: 1. Continue routine care. Encourage ambulation today. 2. GDMA2 - 2-hour GTT . Do not need to check blood sugars . 3. Rh negative, baby also Rh negative - Rhogam not indicated. 4. GBS negative 5. Dispo - Discharge home today. Reviewed discharge instructions/precautions. All questions answered.
[2021-02-14] MEDS: Ibuprofen 800 MG Tab PO PRN (13:08)
[2021-02-14 14:56] VITALS: BP 121/72; PULSE 81
== END 2021-02-14 14:07 | disposition home or self-care (01) | DRG 540 ==
LOC: MW.OBCHECK 19:24 → MW.OB 19:24 → MW.OBCHECK 19:30 → MW.OB 19:30 → OBSVTOIN 02-12 09:01 → MW.OB 02-12 14:51
PROVIDERS: ADMIT Obstetrics & Gynecology; ATTEND Obstetrics & Gynecology
PROC: 10D00Z1 Extraction of Products of Conception, Low, Open Approach (ICD-10-PCS; principal; 2021-02-12)
PROC: 3E0P7VZ Introduction of Hormone into Female Reproductive, Via Natural or Artificial Opening (ICD-10-PCS; 2021-02-12)
PROC: 3E0R3BZ Introduction of Anesthetic Agent into Spinal Canal, Percutaneous Approach (ICD-10-PCS; 2021-02-12)
PROC: 00HU33Z Insertion of Infusion Device into Spinal Canal, Percutaneous Approach (ICD-10-PCS; 2021-02-12)
DX: O24.424 Gestational diabetes mellitus in childbirth, insulin controlled (principal); Z37.0 Single live birth; O62.1 Secondary uterine inertia; O99.62 Diseases of the digestive system complicating childbirth; K21.9 Gastro-esophageal reflux disease without esophagitis; O99.214 Obesity complicating childbirth; O99.52 Diseases of the respiratory system complicating childbirth; J45.909 Unspecified asthma, uncomplicated; Z3A.39 39 weeks gestation of pregnancy; Z87.891 Personal history of nicotine dependence
CPT/HCPCS: 01967; 01968; 36415; 51702; 59025; 82803; 82947; 85014; 85018; 85027; 86592; 86850; 86900; 86901; A9270-GY; J0595; J0690; J1200; J1885; J2270; J2300; J2370; J2590; J2795; J3010; J3490; J7120; J7121

== ENCOUNTER 2023-08-24 11:29 | Emergency (ER) | payer SELFPAY ==
[2023-08-24] MEDS: Sodium Chloride 0.9% 1,000 ML IV SCH (12:07)
[2023-08-24 12:21] LABS: BASOPHILS ABSOLUTE AUTO 0.02 K/uL (0.00-0.20); BASOPHILS PERCENT AUTO 0.2 % (0.0-1.0); EOSINOPHILS ABSOLUTE AUTO 0.12 K/uL (0.00-0.45); EOSINOPHILS PERCENT AUTO 1.3 % (0.0-6.0); HEMATOCRIT 42.1 % (37.0-47.0); HEMOGLOBIN 14.3 g/dL (12.0-16.0); IMMATURE GRAN ABSOLUTE AUTO 0.06 K/uL (0.00-0.05); IMMATURE GRAN PERCENT AUTO 0.7 % (0.0-0.4); LYMPHOCYTES ABSOLUTE AUTO 2.06 K/uL (1.00-4.80); LYMPHOCYTES PERCENT AUTO 22.7 % (24.0-44.0); MEAN CORPUSCULAR HEMOGLOBIN 28.3 pg (28.0-32.0); MEAN CORPUSCULAR VOLUME 83.2 fL (83.0-99.0); MEAN PLATELET VOLUME 10.7 fL (9.4-12.3); MONOCYTES ABSOLUTE AUTO 0.54 K/uL (0.00-0.80); MONOCYTES PERCENT AUTO 5.9 % (0.0-8.0); NEUTROPHILS ABSOLUTE AUTO 6.29 K/uL (1.80-7.70); NEUTROPHILS PERCENT AUTO 69.2 % (41.0-71.0); PLATELET COUNT,PLT 231 K/uL (150-400); RED BLOOD CELL COUNT 5.06 M/uL (4.10-5.30); WHITE BLOOD CELL COUNT,WBC 9.09 K/uL (3.9-11.3)
[2023-08-24 12:38] LABS: APPEARANCE,URINE CLEAR; BILIRUBIN,URINE NEGATIVE (NEGATIVE); COLOR,URINE YELLOW; GLUCOSE,URINE NEGATIVE (NEGATIVE); KETONES,URINE NEGATIVE (NEGATIVE); LEUKOCYTE ESTERASE,URINE SMALL (NEGATIVE); NITRITE,URINE NEGATIVE (NEGATIVE); OCCULT BLOOD,URINE LARGE (NEGATIVE); PROTEIN,URINE NEGATIVE (NEGATIVE); UROBILINOGEN,URINE 0.2 EU/dL (<2.0)
[2023-08-24 13:04] LABS: BACTERIA,URINE FEW (NEGATIVE); EPITHELIAL CELLS,URINE OCCASIONAL (NONE-FEW)
[2023-08-24 13:12] LABS: A/G RATIO 0.9 (0.9-1.6); ALBUMIN 3.6 g/dL (3.4-5.0); BILIRUBIN TOTAL 0.3 mg/dL (0.2-1.0); CALCIUM 8.9 mg/dL (8.5-10.1); CARBON DIOXIDE,CO2 22.7 mmol/L (21.0-32.0); CREATININE 0.8 mg/dL (0.6-1.0); POTASSIUM,K 3.8 mmol/L (3.5-5.1); PROTEIN TOTAL,TP 7.7 g/dL (6.4-8.2)
[2023-08-24 15:13] VITALS: BP 119/67; PULSE 72
== END 2023-08-24 15:21 | disposition home or self-care (01) ==
LOC: MW.ED 11:29
DX: O20.0 Threatened abortion (principal); Z75.8 Other problems related to medical facilities and other health care; Z79.82 Long term (current) use of aspirin; Z79.899 Other long term (current) drug therapy
CPT/HCPCS: 36415; 76817; 80053; 81001; 84702; 85025; 86850; 86900; 86901; 90384; 96360; 96372; 99284; J7030; 99283; J2790

== ENCOUNTER 2023-09-02 18:56 | Emergency (ER) | payer OTHER ==
[2023-09-02 19:40] LABS: BASOPHILS ABSOLUTE AUTO 0.03 K/uL (0.00-0.20); BASOPHILS PERCENT AUTO 0.3 % (0.0-1.0); EOSINOPHILS ABSOLUTE AUTO 0.19 K/uL (0.00-0.45); HEMATOCRIT 35.8 % (37.0-47.0); HEMOGLOBIN 12.1 g/dL (12.0-16.0); IMMATURE GRAN ABSOLUTE AUTO 0.09 K/uL (0.00-0.05); LYMPHOCYTES ABSOLUTE AUTO 2.41 K/uL (1.00-4.80); LYMPHOCYTES PERCENT AUTO 25.5 % (24.0-44.0); MEAN CORPUSCULAR HEMOGLOBIN 28.3 pg (28.0-32.0); MEAN CORPUSCULAR HGB CONC 33.8 g/dL (32.0-36.0); MEAN CORPUSCULAR VOLUME 83.6 fL (83.0-99.0); MEAN PLATELET VOLUME 10.4 fL (9.4-12.3); MONOCYTES ABSOLUTE AUTO 0.49 K/uL (0.00-0.80); MONOCYTES PERCENT AUTO 5.2 % (0.0-8.0); NEUTROPHILS ABSOLUTE AUTO 6.24 K/uL (1.80-7.70); PLATELET COUNT,PLT 199 K/uL (150-400); RED BLOOD CELL COUNT 4.28 M/uL (4.10-5.30); WHITE BLOOD CELL COUNT,WBC 9.45 K/uL (3.9-11.3)
[2023-09-02 20:44] LABS: ALBUMIN 3.2 g/dL (3.4-5.0); BILIRUBIN TOTAL 0.3 mg/dL (0.2-1.0); CALCIUM 8.7 mg/dL (8.5-10.1); CREATININE 0.7 mg/dL (0.6-1.0); EST CRCL DRUG DOSING (CG) 102.86 mL/min; POTASSIUM,K 3.9 mmol/L (3.5-5.1); PROTEIN TOTAL,TP 6.4 g/dL (6.4-8.2)
[2023-09-02 21:49] VITALS: BP 127/94; PULSE 80
== END 2023-09-02 21:49 | disposition home or self-care (01) ==
LOC: MW.ED 18:56
DX: O20.0 Threatened abortion (principal); O99.211 Obesity complicating pregnancy, first trimester; O99.611 Diseases of the digestive system complicating pregnancy, first trimester; E66.9 Obesity, unspecified; K21.9 Gastro-esophageal reflux disease without esophagitis; Z3A.10 10 weeks gestation of pregnancy; Z79.899 Other long term (current) drug therapy; Z75.8 Other problems related to medical facilities and other health care
CPT/HCPCS: 36415; 76801; 76801-26; 80053; 84702; 85025; 86900; 86901; 99283; 99284

== ENCOUNTER 2024-03-21 05:12 | Inpatient (IN) | payer OTHER ==
[2024-03-21] MEDS: Lactated Ringers 1,000 ML IV SCH (05:55)
[2024-03-21] MEDS ORDERED: Sodium Chloride 0.9% 2.5 ML Syringe FLUSH PRN (05:58)
[2024-03-21] MEDS ORDERED: Sodium Chloride 0.9% 20 ML SDV IV PRN (05:58)
[2024-03-21] MEDS ORDERED: Sodium Chloride 0.9% 10 ML Syringe FLUSH PRN (05:58)
[2024-03-21] MEDS ORDERED: Oxytocin/0.9 % Sodium Chloride 30 UNIT/500 ML BAG IV SCH (06:00)
[2024-03-21 06:18] LABS: HEMATOCRIT 37.2 % (37.0-47.0); HEMOGLOBIN 12.8 g/dL (12.0-16.0); MEAN CORPUSCULAR HEMOGLOBIN 30.8 pg (28.0-32.0); MEAN CORPUSCULAR HGB CONC 34.4 g/dL (32.0-36.0); MEAN CORPUSCULAR VOLUME 89.6 fL (83.0-99.0); PLATELET COUNT,PLT 152 K/uL (150-400); RED BLOOD CELL COUNT 4.15 M/uL (4.10-5.30); WHITE BLOOD CELL COUNT,WBC 10.81 K/uL (3.9-11.3)
[2024-03-21] MEDS ORDERED: ceFAZolin 1 GM Vial ONE (07:22)
[2024-03-21] MEDS ORDERED: Ropivacaine 0.5% 5 MG/ML 30 ML SDV ONE (07:22)
[2024-03-21] MEDS ORDERED: fentaNYL 100 MCG/2 ML SDV ONE (07:22)
[2024-03-21] MEDS ORDERED: Bupivacaine 0.25% 30 ML SDV ONE (07:22)
[2024-03-21] MEDS ORDERED: EPINEPHrine 1 MG/1 ML Amp ONE (07:22)
[2024-03-21] MEDS ORDERED: Ondansetron 4 MG/2 ML SDV ONE (07:22)
[2024-03-21] MEDS ORDERED: Oxytocin 10 Units/1 ML SDV ONE ×3 (07:22→08:17)
[2024-03-21] MEDS ORDERED: Ketorolac 30 MG/ML SDV ONE (07:22)
[2024-03-21 08:01] LABS: CALCIUM 9.2 mg/dL (8.5-10.1); CARBON DIOXIDE,CO2 19.6 mmol/L (21.0-32.0); CREATININE 0.5 mg/dL (0.6-1.0); POTASSIUM,K 3.7 mmol/L (3.5-5.1)
[2024-03-21] MEDS ORDERED: Phenylephrine HCl In 0.9% NaCl 1 MG/10 ML Syringe ONE (08:31)
[2024-03-21] MEDS ORDERED: diphenhydrAMINE 50 MG/ML SDV IVPUSH PRN (09:06)
[2024-03-21] MEDS ORDERED: Ondansetron 4 MG/2 ML SDV IVPUSH PRN ×2 (09:06→09:21)
[2024-03-21] MEDS ORDERED: Lanolin 100% Cream 7 GM Tube TOP PRN (09:06)
[2024-03-21] MEDS ORDERED: Misoprostol 200 MCG Tab RECTAL PRN (09:06)
[2024-03-21] MEDS ORDERED: Methylergonovine 0.2 MG/1 ML Amp IM PRN (09:06)
[2024-03-21] MEDS ORDERED: Bisacodyl 10 MG Supp RECTAL PRN (09:06)
[2024-03-21] MEDS ORDERED: Oxytocin 10 Units/1 ML SDV IM PRN (09:06)
[2024-03-21] MEDS ORDERED: Lactated Ringers 1,000 ML IV SCH (09:15)
[2024-03-21] MEDS ORDERED: ePHEDrine 50 MG/ML SDV IM PRN (09:21)
[2024-03-21] MEDS ORDERED: HYDROmorphone 1 MG/ML Syringe IVPUSH PRN (09:21)
[2024-03-21] MEDS ORDERED: Metoclopramide 10 MG/2 ML SDV IVPUSH PRN (09:21)
[2024-03-21] MEDS ORDERED: fentaNYL 50 MCG/ML SDV IVPUSH PRN (09:21)
[2024-03-21] MEDS ORDERED: Albuterol 0.083% 2.5 MG/3 ML Neb Soln NEB PRN (09:21)
[2024-03-21] MEDS ORDERED: Morphine 2 MG/ML SYRINGE IVPUSH PRN (09:21)
[2024-03-21] MEDS ORDERED: Naloxone 0.4 MG/ML SDV IVPUSH PRN (09:21)
[2024-03-21] MEDS ORDERED: Phenylephrine HCl In 0.9% NaCl 1 MG/10 ML Syringe IVPUSH PRN (09:21)
[2024-03-21 09:39] LABS: PH,UMBILICAL ARTERIAL 7.237 (7.18-7.38); PH,UMBILICAL VENOUS 7.3 (7.25-7.45)
[2024-03-21] MEDS ORDERED: Acetaminophen 1,000 MG in Premix Bag 1 BAG IV SCH (10:00)
[2024-03-21] MEDS: Acetaminophen 1,000 MG in Premix Bag 1 BAG IV SCH (10:13)
[2024-03-21] MEDS: Ketorolac 30 MG/ML SDV IVPUSH SCH (13:42)
[2024-03-21] MEDS: Simethicone 80 MG Tab.Chew PO SCH (13:42)
[2024-03-21] MEDS: Citric Acid/Sodium Citrate Solution 30 ML Cup PO ONE (13:48)
[2024-03-21] MEDS: Docusate Sodium 100 MG Cap PO SCH (21:19)
[2024-03-22 05:51] LABS: HEMATOCRIT 32.2 % (37.0-47.0); HEMOGLOBIN 10.8 g/dL (12.0-16.0)
[2024-03-22 06:18] LABS: CALCIUM 8.6 mg/dL (8.5-10.1); CARBON DIOXIDE,CO2 23.9 mmol/L (21.0-32.0); CREATININE 0.8 mg/dL (0.6-1.0); POTASSIUM,K 4.1 mmol/L (3.5-5.1)
[2024-03-22] MEDS: Acetaminophen/oxyCODONE 325-5 MG Tab PO PRN (11:08)
[2024-03-22] MEDS: Insulin Glargine,Hum.Rec.Anlog 100 UNIT/ML 3 ML Pen SUBCUT SCH (11:08)
[2024-03-22] MEDS: Ibuprofen 800 MG Tab PO PRN (21:21)
[2024-03-23 09:14] VITALS: BP 115/70; PULSE 87
[2024-03-23] MEDS: Acetaminophen/oxyCODONE 325-5 MG Tab PO PRN (09:30)
== END 2024-03-23 16:06 | disposition home or self-care (01) | DRG 788 ==
LOC: MW.OB 05:12
PROVIDERS: ADMIT Obstetrics & Gynecology; ATTEND Obstetrics & Gynecology
PROC: 10D00Z1 Extraction of Products of Conception, Low, Open Approach (ICD-10-PCS; principal; 2024-03-21 08:00)
DX: O24.424 Gestational diabetes mellitus in childbirth, insulin controlled (principal); O99.344 Other mental disorders complicating childbirth; O99.214 Obesity complicating childbirth; Z3A.38 38 weeks gestation of pregnancy; Z37.0 Single live birth; K21.9 Gastro-esophageal reflux disease without esophagitis; O99.284 Endocrine, nutritional and metabolic diseases complicating childbirth; E28.2 Polycystic ovarian syndrome; J45.909 Unspecified asthma, uncomplicated; E11.9 Type 2 diabetes mellitus without complications; E55.9 Vitamin D deficiency, unspecified; Z72.0 Tobacco use; Z90.49 Acquired absence of other specified parts of digestive tract; Z98.891 History of uterine scar from previous surgery
CPT/HCPCS: 01961; 36415; 59025; 64488; 80048; 82803; 85014; 85018; 85027; 86592; 86850; 86900; 86901; A9270-GY; J0131; J0171; J0665; J0690; J1100; J1885; J2371; J2405; J2590; J2795; J3010; J7120